=== PATIENT | female | born 1950 | race Two or more races ===

== ENCOUNTER 2019-01-07 07:56 | Day surgery (SDC) | payer OTHER ==
[2019-01-03 10:57] LABS: BASOPHILS # (AUTO) 0.1 (0.0-0.1); BASOPHILS % 1.2 % (0.0-1.0); EOSINOPHILS # (AUTO) 0.4 (0.0-0.4); EOSINOPHILS % 3.9 % (0.0-6.0); HEMOGLOBIN 14.1 g/dL (12.0-16.0); LYMPHOCYTES # (AUTO) 2.6 (1.0-3.2); LYMPHOCYTES % 26.4 % (18.0-39.1); MEAN CORPUSCULAR HEMOGLOBIN 28.1 pg (28-32); MEAN CORPUSCULAR HGB CONC 32.8 g/dL (31-35); MEAN CORPUSCULAR VOLUME 85.7 fL (81-99); MONOCYTES # (AUTO) 0.8 (0.2-0.8); MONOCYTES % 7.9 % (4.4-11.3); NEUTROPHILS # (AUTO) 5.8 (2.1-6.9); NEUTROPHILS % 59.5 % (38.7-80.0); PLATELET COUNT 334 x10e3/uL (140-360); RED BLOOD COUNT 5.02 x10e6/uL (3.6-5.1); RED CELL DISTRIBUTION WIDTH 13.6 % (11.7-14.4)
[2019-01-03 11:47] LABS: ALANINE AMINOTRANSFERASE 26 IU/L (0-55); ALKALINE PHOSPHATASE 63 IU/L (40-150); ANION GAP 13.6 mmol/L (8-16); BLOOD UREA NITROGEN 14 mg/dL (7-26); BUN/CREATININE RATIO 20 (6-25); CALCIUM 10.4 mg/dL (8.4-10.2); CARBON DIOXIDE 31 mmol/L (22-29); CHLORIDE 101 mmol/L (98-107); CREATININE, SERUM 0.69 mg/dL (0.57-1.11); EST GLOMERULAR FILTRATION RATE > 60 ML/MIN (60-); GLUCOSE 84 mg/dL (74-118); POTASSIUM 4.6 mmol/L (3.5-5.1); SODIUM 141 mmol/L (136-145)
[~2019-01-07] VITALS: Ht 162.6 cm; Wt 72.7 kg
[2019-01-07] VITALS (11 sets, daily range): BP systolic 111–123; BP diastolic 66–99
[~2019-01-07 07:56] MED LIST: ACETAMINOPHEN650 M3 PO; ASPIR 8181 MG PO; CALCIUM PO; CARDIZEM60 MG PO; GABAPENTIN100 MG PO; GLUCOSAMINE1000 MG PO; MELOXICAM7.5 MG PO; MULTI-VITAMIN1 EACH PO; TURMERIC PO; ULTRAM50 MG PO; VITAMIN C1000 MG PO; [UNRECOGNIZED DRUG - OTHER]
--- OUTSIDE RECORDS SUMMARY | 2019-01-07 08:07 | XMS REPORT ---
Author Author [facility] Address Unknown Phone Unavailable Care Team Providers Care Vice President Of Operations Name Role Phone Unavailable Unavailable Payers Payer Name Policy Type Policy Number Effective Date Expiration Date Problems This patient has no known problems. Allergies, Adverse Reactions, Alerts Allergy Name Allergy Type Status Severity Reaction(s) Onset Date Inactive Date Treating Clinician Comments Penicillins DA Active 2018-03-11 00:00:00 tea tree DA Active 2018-03-11 00:00:00 Medications This patient has no known medications.
[2019-01-07] MEDS ORDERED: SODIUM CHLORIDE 0.9% 1000ML 1,000 ML ONE (10:47)
[2019-01-07] MEDS ORDERED: IOPAMIDOL 300MG/ML 100 ML INFUS..BTL IV ONE (10:52)
[2019-01-07] MEDS ORDERED: MIDAZOLAM HCL 2 MG/2 ML VIAL ONE ×2 (11:07→16:10)
[2019-01-07] MEDS ORDERED: BIVALRIUDIN 250 MG/VIAL VIAL IV ONE (11:07)
[2019-01-07] MEDS ORDERED: SODIUM CHLORIDE 0.9% 50ML 50 ML ONE (11:07)
[2019-01-07] MEDS ORDERED: PRASUGREL 10 MG TAB ONE (11:07)
[2019-01-07] MEDS ORDERED: ASPIRIN 325 MG TAB ONE (11:08)
--- NOTE | 2019-01-07 12:30 | NUR ---
1230 Bedside report received from Matthias MIRANDA.Identiferx2. Alert oriented and appropriate, PERRLA, respirations even and unlabored to room air. Pulses x4 extremities equal and strong. Pedal pulses present by palpitation Cap fill brisk < 3 sec. Rt groin noted slight hematoma. Bed ordered per housekeeping cleaner Jordan MIRANDA Down time till 6pm. ds/rn Skin warm and dry integrity appears D/I. IV 20g to left hand at 75cchr, presents healthy w/o s/s of infiltration or complaint. Abdomen soft and supple. pt offered toileting, denies need to urinate or defecate. No personal affects with patient. Family daughter Shruthi [phone]. Pt and family verbalizes understanding of POC. d/c papers signed and copies with stent card given to daughter. Currently w/o complaint of pain or need. Sheath removal due at 1330pm wendy/rn
--- NOTE | 2019-01-07 13:45 | NUR ---
1345sheath pull completed at bedside Rt femoral site with Ilene Williamson, health information technologist held 16min and additional 10min to assist No hematoma or oozing noted. PPx4 present and palpable. Pt aware down time till 1800pm and may be dc home.Has copies of dc papers and knows importance of followup care. Transferred to floor care. Yaneth RN took verbal handoff report 1430 and pt handoff completed with transfer to Rm 113 per stretcher iv infusing at 75hr via dial a flow No infiltration noted and line intact. Family Shruthi daughter in escort to room ds/rn
--- NOTE | 2019-01-07 14:48 | NUR ---
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 Accompanied by and daughter. AAOX3 to time, person, place. Respirations even and unlabored. Tele #[phone]. NS 75ml/hr via left hand IV. Dressing to right groin clean, dry, and intact.
--- NOTE | 2019-01-07 15:00 | NUR ---
Per Nelida RN catholic priest nurse, "I gave patient discharge instructions and rx."
[2019-01-07] MEDS ORDERED: SODIUM CHLORIDE 0.9% 1000ML 1,000 ML IV SCH (15:30)
[2019-01-07] MEDS ORDERED: FENTANYL CITRATE/PF 100MCG/2 ML INJ ONE (16:10)
[2019-01-07] MEDS ORDERED: HYDROCODONE/APAP 5MG-325MG TAB PO PRN (16:45)
--- NOTE | 2019-01-07 18:19 | NUR ---
Left hand IV discontinued. No signs of infiltration noted. 2x2 gauze and tape placed. Taken via wheelchair by PCT to personal car. Accompanied by daughter and . AAOX4 to time, person, place, situation. Respirations even and unlabored. Dressing to right groin clean, dry, and intact. Discharge instructions, rx, and all personal belongings taken with patient.
--- NOTE | 2019-01-12 12:26 | Operative Report ---
DATE OF PROCEDURE: 01/07/2019 SURGEON: Davon Mcknight MD INDICATIONS: 1. Coronary artery disease. 2. Peripheral arterial disease. PROCEDURES PERFORMED: 1. Left heart catheterization, selective coronary angiography, left ventriculography. 2. PTCA and stent placement of the circumflex artery. 3. Aortic arch aortogram. 4. Deployment of right groin Perclose. COMPLICATIONS: None. RECOMMENDATIONS: Dual antiplatelet therapy for at least 6 months. DESCRIPTION OF PROCEDURE: Access obtained in the right femoral artery, 6-Slovenian sheath was placed. Thoracic aortogram demonstrated complete flush. Occlusion of the left subclavian artery with retrograde filling of the left axillary artery via the left vertebral artery, right innominate and left carotid artery had mild disease. Coronary angiography demonstrated moderate disease in the left anterior descending artery and right coronary artery of 30% to 50% stenosis. Obtuse marginal branch of circumflex had 90% stenosis. A decision was made to intervene on this artery. The patient received Angiomax for anticoagulation. A short wire was advanced across the lesion for support. Primary stent 2.25 x 12 mm Resolute Brandt deployed at 14 atmospheres. Excellent end result, less than 10% residual stenosis. No complications. BRENDA-3 flow. Right groin repaired using Perclose closure device. The patient was discharged home same day. Davon Mcknight MD KSB/MODL /[id number]
== END 2019-01-07 18:19 | disposition home or self-care (01) ==
LOC: CATH LAB 07:56
PROVIDERS: ATTEND Internal Medicine Interventional Cardiology
DX: I25.10 Atherosclerotic heart disease of native coronary artery without angina pectoris (principal); I73.9 Peripheral vascular disease, unspecified; Z01.812 Encounter for preprocedural laboratory examination; Z88.0 Allergy status to penicillin
CPT/HCPCS: 36221; 36415; 80053; 85025; 92928; 93458; C1725; C1769; C1874; C1887; J0583; J2250; J3010; J7030; Q9967